=== PATIENT | male | born 1955 | race Caucasian/White ===

== ENCOUNTER → 2016-11-08 | Outpatient (CLI) | payer BC ==
--- NOTE | ~2016-11-08 | XA30 ---
[facility] A Service of [facility] & [facility] RADIOLOGY TEXT RESULTS PATIENT: DAVID SALAZAR LOCATION: CIVR : 57 UNIT #: [id number] AGE: [address]: Kirk Rich MD SEX: M ORDER DR: [id number] [facility] [address] [place], [place] [address] [id number] O MR#: [id number] Acc #: [id number] NAME: DAVID SALAAZR : 1955 SEX: M STUDY DATE/TIME: 11/08/2016 9:58 UNIT: [facility] ROOM: STUDY DESCRIPTION: XA Arthrocentesis Major Joint Attending Physician: Kirk Rich M.D. Ordering Physician: Kirk Rich M.D. Primary Care Physician: Marko Hunter M.D. MEDICAL IMAGING REPORT This report is preliminary unless electronic signature is present EXAM Left hip arthrocentesis and therapeutic injection 11/08/2016 HISTORY Left hip pain. PROCEDURE Informed consent was obtained. Skin site was selected with fluoroscopic guidance and marked, sterilely prepped and draped and locally anesthetized. Using fluoroscopic guidance a 22-gauge spinal needle was advanced into the joint and intraarticular needle tip position confirmed with contrast injection followed by injection of 40 mg of Depo-Medrol and 2 mL of 0.5% Marcaine. Patient reported pre-procedure pain level 9:10 and postprocedure pain level 1:10. A single spot image, total fluoro time 1.2 minutes. IMPRESSION Successful left hip arthrocentesis and injection with Depo-Medrol and Marcaine as above. Dictated by... Sean Shay M.D. THIS IS AN ELECTRONICALLY VERIFIED REPORT Sean Shay M.D. at 11/16/2016 5:04 PM PATRICE/wesly TD: 11/12/2016 17:43 JOB #: [id number] MEDICAL IMAGING REPORT Page 1 of 1 COPY
== END | disposition home or self-care (01) ==
LOC: CIVR 09:39
DX: M25.552 Pain in left hip (principal)
CPT/HCPCS: 77002; J1030; Q9966